=== PATIENT | male | born 1965 | race Caucasian/White ===

== ENCOUNTER 2018-05-31 22:13 | Emergency (ER) | payer SELFPAY ==
[~2018-05-31] VITALS: Ht 182.9 cm; Wt 122.5 kg
[2018-05-31 22:15] VITALS: BP 128/71
[2018-06-01 00:13] LABS: BILIRUBIN,URINE NEGATIVE (NEGATIVE); CLARITY,URINE CLEAR; COLOR,URINE YELLOW; GLUCOSE, URINE (UA) 4+ (NEGATIVE); KETONES,URINE NEGATIVE (NEGATIVE); LEUKOCYTE ESTERASE ,URINE NEGATIVE (NEGATIVE); NITRITE,URINE NEGATIVE (NEGATIVE); PH,URINE 6 (5-9); PROTEIN,URINE NEGATIVE (NEGATIVE); UROBILINOGEN,URINE NORMAL (NORMAL)
[2018-06-01 00:16] LABS: BASOPHILS # (AUTO) 0.1 10^3/uL (0.0-0.1); BASOPHILS % (AUTO) 1 % (0-10); EOSINOPHILS # (AUTO) 0.1 10^3/uL (0.0-0.3); EOSINOPHILS % (AUTO) 1 % (0-10); HEMATOCRIT 38 % (40-54); HEMOGLOBIN 12.6 G/DL (13.3-17.7); LYMPHOCYTES # (AUTO) 1.4 X 10^3 (1.0-4.0); LYMPHOCYTES % (AUTO) 17 % (12-44); MEAN CORPUSCULAR HEMOGLOBIN 26 PG (25-34); MEAN CORPUSCULAR HGB CONC 33 G/DL (32-36); MEAN CORPUSCULAR VOLUME 78 FL (80-99); MONOCYTES # (AUTO) 0.5 X 10^3 (0.0-1.0); MONOCYTES % (AUTO) 6 % (0-12); NEUTROPHILS # (AUTO) 6.4 X 10^3 (1.8-7.8); NEUTROPHILS % (AUTO) 76 % (42-75); PLATELET COUNT 338 10^3/uL (130-400); RED BLOOD COUNT 4.89 10^6/uL (4.35-5.85); RED CELL DISTRIBUTION WIDTH 18.2 % (10.0-14.5); WHITE BLOOD COUNT 8.4 10^3/uL (4.3-11.0)
[2018-06-01 00:19] LABS: BACTERIA,URINE NEGATIVE /HPF
[2018-06-01 00:24] LABS: AMPHETAMINE SCREEN, URINE NEGATIVE (NEGATIVE); BARBITURATE SCREEN URINE NEGATIVE (NEGATIVE); BENZODIAZEPINES SCREEN URINE NEGATIVE (NEGATIVE); CANNABINOID SCREEN, URINE POSITIVE (NEGATIVE); COCAINE SCREEN URINE NEGATIVE (NEGATIVE); METHADONE STAT NEGATIVE (NEGATIVE); METHAMPHETAMINE SCREEN URINE S NEGATIVE (NEGATIVE); OPIATE SCREEN URINE NEGATIVE (NEGATIVE); OXYCODONE STAT NEGATIVE (NEGATIVE); PROPOXYPHENE STAT NEGATIVE (NEGATIVE); TRICYCLIC ANTIDEPRESSANTS SCRE NEGATIVE (NEGATIVE)
[2018-06-01 00:36] LABS: ALANINE AMINOTRANSFERASE 20 U/L (0-55); ALBUMIN 4.1 GM/DL (3.2-4.5); ALKALINE PHOSPHATASE 92 U/L (40-136); BILIRUBIN,TOTAL 0.2 MG/DL (0.1-1.0); BUN/CREATININE RATIO 13; CALCIUM 8.9 MG/DL (8.5-10.1); CARBON DIOXIDE 23 MMOL/L (21-32); CHLORIDE 104 MMOL/L (98-107); CREATININE SERUM 0.96 MG/DL (0.60-1.30); GFR ESTIMATED > 60; GLUCOSE 272 MG/DL (70-105); MAGNESIUM 2.3 MG/DL (1.8-2.4); SODIUM 139 MMOL/L (135-145)
--- NOTE | 2018-06-01 01:34 | ED General ---
General Chief Complaint: Glucose Problems Stated Complaint: BS/TIRED Nursing Triage Note: Pt arrives to ED Room #10 via EMS with c/o glucose problems. Pt stated that his BS was in the 40's this AM and he had to take Oral Glucose and Sugar. Pt stated that now his BS is 300 and he called EMS. Pt states that he is dizzy and diaphoretic and has never had those symptoms before. Pt stated that is why he called EMS. Pt stated that he just got back from a hunting trip 2 days ago, where he was drinking in excess. Nursing Sepsis Screen: No Definite Risk Source of Information: Patient Exam Limitations: No Limitations History of Present Illness Date Seen by Provider: May 31, 2018 Time Seen by Provider: 22:55 Initial Comments This 52-year-old man presents to the emergency room with complaints of episodes of significant dizziness and diaphoresis today. He is visiting from [facility] and does not have a primary care provider here. He is a type I diabetic. He reports having a hypoglycemic episode this morning in which his blood sugar was as low as the 40s. He took some oral glucose and that improved his symptoms. He was very dizzy and diaphoretic at the time. He had a repeat episode this evening but checked his blood sugar and found it to be 322. Patient has been drinking alcohol. He reports drinking rum and Pepsi in the evenings. He usually drinks 2-4 days per week. He also frequently uses marijuana. Patient is concerned because he had symptoms of severe hypoglycemia when in fact he was not hypoglycemic. He denies any chest pain or shortness of breath. Symptoms have improved now that he feels fatigued. He denies any change in diet or other lifestyle changes. He reports some increased stress recently as his uncle was in a car accident yesterday. His last episode of dizziness or diaphoresis was at 19:30. Allergies and Home Medications Patient Home Medication List Home Medication List Reviewed: Yes Review of Systems Review of Systems Constitutional: see HPI EENTM: no symptoms reported Respiratory: no symptoms reported Cardiovascular: see HPI Gastrointestinal: no symptoms reported Genitourinary: no symptoms reported Musculoskeletal: no symptoms reported Skin: no symptoms reported Psychiatric/Neurological: See HPI Hematologic/Lymphatic: No Symptoms Reported Immunological/Allergic: no symptoms reported Past [id number] Hx Patient Social History Alcohol Use: Regular Use Alcohol Beverage of Choice: Rum Recreational Drug Use: No Smoking Status: Current Everyday Smoker Type Used: Cigarettes 2nd Hand Smoke Exposure: Yes Recent Foreign Travel: No Contact w/Someone Who Travel: No Recent Infectious Disease Expo: No Physical Abuse: No Sexual Abuse: No Mistreated: No Fear: No Past Medical History Surgeries: Yes Cardiac (cardiac catheter with no disease reported) Respiratory: No Cardiac: No Neurological: No Reproductive Disorders: No Genitourinary: No Gastrointestinal: No Musculoskeletal: No Endocrine: Yes Diabetes, Insulin dep (type 1) HEENT: No Cancer: No Psychosocial: No Physical Exam Vital Signs Vital Signs - First Documented 05/31/18 22:15 Temp 98.4 Pulse 81 Resp 18 B/P (MAP) 128/71 (90) Pulse Ox 95 O2 Delivery Room Air Capillary Refill : Less Than 3 Seconds Height, Weight, BMI Height: 6'" Weight: 270lbs. oz. [id number]; BMI Method:Stated General Appearance: No Apparent Distress, WD/WN, Obese HEENT: PERRL/EOMI, Normal ENT Inspection Neck: Normal Inspection Respiratory: Lungs Clear, Normal Breath Sounds, No Accessory Muscle Use, No Respiratory Distress Cardiovascular: Regular Rate, Rhythm, No Edema, No Murmur, Normal Peripheral Pulses Gastrointestinal: Normal Bowel Sounds, Non Tender, Soft Extremity: Normal Capillary Refill, Normal Inspection, Non Tender Neurologic/Psychiatric: Alert, Oriented x3, No Motor/Sensory Deficits, Normal Mood/Affect, icu tech II-XII Norm as Tested Skin: Normal Color, Warm/Dry Progress/Results/Core Measures Suspected Sepsis Recent Fever Within 48 Hours: No Infection Criteria Present: None New/Unexplained Altered Menta: No Sepsis Screen: No Definite Risk SIRS Temperature:98.4 Pulse: 81 Respiratory Rate: 18 Laboratory Tests 06/01/18 00:08: White Blood Count 8.4 Blood Pressure 128 /71 Mean: 90 Laboratory Tests 06/01/18 00:08: Creatinine 0.96, Platelet Count 338, Total Bilirubin 0.2 Results/Orders Lab Results Laboratory Tests Test 05/31/18 22:20 05/31/18 23:55 06/01/18 00:08 Range/Units Glucometer 195 H 70-110 MG/DL Urine Opiates Screen NEGATIVE NEGATIVE Urine Oxycodone Screen NEGATIVE NEGATIVE Urine Methadone Screen NEGATIVE NEGATIVE Urine Propoxyphene Screen NEGATIVE NEGATIVE Urine Barbiturates Screen NEGATIVE NEGATIVE Ur Tricyclic Antidepressants Screen NEGATIVE NEGATIVE Urine Phencyclidine Screen NEGATIVE NEGATIVE Urine Amphetamines Screen NEGATIVE NEGATIVE Urine Methamphetamines Screen NEGATIVE NEGATIVE Urine Benzodiazepines Screen NEGATIVE NEGATIVE Urine Cocaine Screen NEGATIVE NEGATIVE Urine Cannabinoids Screen POSITIVE H NEGATIVE White Blood Count 8.4 4.3-11.0 10^3/uL Red Blood Count 4.89 4.35-5.85 10^6/uL Hemoglobin 12.6 L 13.3-17.7 G/DL Hematocrit 38 L 40-54 % Mean Corpuscular Volume 78 L 80-99 FL Mean Corpuscular Hemoglobin 26 25-34 PG Mean Corpuscular Hemoglobin Concent 33 32-36 G/DL Red Cell Distribution Width 18.2 H 10.0-14.5 % Platelet Count 338 130-400 10^3/uL Mean Platelet Volume 9.0 7.4-10.4 FL Neutrophils (%) (Auto) 76 H 42-75 % Lymphocytes (%) (Auto) 17 12-44 % Monocytes (%) (Auto) 6 0-12 % Eosinophils (%) (Auto) 1 0-10 % Basophils (%) (Auto) 1 0-10 % Neutrophils # (Auto) 6.4 1.8-7.8 X 10^3 Lymphocytes # (Auto) 1.4 1.0-4.0 X 10^3 Monocytes # (Auto) 0.5 0.0-1.0 X 10^3 Eosinophils # (Auto) 0.1 0.0-0.3 10^3/uL Basophils # (Auto) 0.1 0.0-0.1 10^3/uL Sodium Level 139 135-145 MMOL/L Potassium Level 4.0 3.6-5.0 MMOL/L Chloride Level 104 98-107 MMOL/L Carbon Dioxide Level 23 21-32 MMOL/L Anion Gap 12 5-14 MMOL/L Blood Urea Nitrogen 12 7-18 MG/DL Creatinine 0.96 0.60-1.30 MG/DL Estimat Glomerular Filtration Rate > 60 BUN/Creatinine Ratio 13 Glucose Level 272 H 70-105 MG/DL Calcium Level 8.9 8.5-10.1 MG/DL Corrected Calcium 8.8 8.5-10.1 MG/DL Magnesium Level 2.3 1.8-2.4 MG/DL Total Bilirubin 0.2 0.1-1.0 MG/DL Aspartate Amino Transf (AST/SGOT) 23 5-34 U/L Alanine Aminotransferase (ALT/SGPT) 20 0-55 U/L Alkaline Phosphatase 92 40-136 U/L Troponin I < 0.30 <0.30 NG/ML Total Protein 7.0 6.4-8.2 GM/DL Albumin 4.1 3.2-4.5 GM/DL Serum Alcohol 167 H <10 MG/DL My Orders Orders - MARIO NDIAYE MD Cbc With Automated Diff (05/31/18:) Comprehensive Metabolic Panel (05/31/18:) Magnesium (05/31/18:) Ua Culture If Indicated (05/31/18:) Accucheck Stat ONCE (05/31/18:) Saline Lock/Iv-Start (05/31/18:) Alcohol (06/01/18 00:03) Drug Screen Stat (Urine) (06/01/18 00:03) Troponin I (06/01/18:03) Ekg Tracing (06/01/18:03) Monitor-Rhythm Ecg Trace Only (06/01/18 00:03) Vital Signs/I&O Capillary Refill : Less Than 3 Seconds Blood Pressure Mean: 90 Point of Care Testing Finger Stick Blood Glucose: 195 Blood Glucose Action Taken: notified Progress Note : Progress Note Patient's workup was unremarkable other than alcohol intoxication. He was feeling well at the conclusion of his workup. He was dismissed home with return precautions and direction to follow-up with a primary care provider. I advised that he reduce his alcohol consumption and not smoke. ECG Initial ECG Impression Date: Jun 01, 2018 Initial ECG Impression Time: 00:11 Initial ECG Rate: 79 Initial ECG Rhythm: Normal Sinus Initial ECG Intervals: Normal Comment Normal sinus rhythm with no ST elevation or depression. No abnormal intervals or axis deviation. Departure Impression Primary Impression: Dizziness Additional Impressions: Diaphoresis Alcohol use Marijuana use Hyperglycemia Disposition: 01 HOME, SELF-CARE Condition: Improved Departure-Patient Inst. Decision time for Depature: 01:33 Referrals: NO,LOCAL PHYSICIAN (PCP/Family) Primary Care Physician Patient Instructions: Diabetes Type 1, Adult (DC) Add. Discharge Instructions: Continue to check your blood sugars frequently. Decrease your alcohol consumption and avoid intoxication. Follow-up with your primary care provider soon as possible. Return to the ER if symptoms worsen again. All discharge instructions reviewed with patient and/or family. Voiced understanding. MARIO NDIAYE MD Jun 01, 2018 01:34
== END 2018-06-01 01:51 | disposition home or self-care (01) ==
LOC: ER 22:15
DX: R42 Dizziness and giddiness (principal); R61 Generalized hyperhidrosis; F10.920 Alcohol use, unspecified with intoxication, uncomplicated; F12.90 Cannabis use, unspecified, uncomplicated; R73.9 Hyperglycemia, unspecified; F17.210 Nicotine dependence, cigarettes, uncomplicated
CPT/HCPCS: 36415; 80053; 80306; 80320; 81000; 82962; 83735; 84484; 85025; 93005